=== PATIENT | female | born 1985 | race Caucasian/White ===

== ENCOUNTER 2017-07-20 19:09 | Emergency (ER) | payer MEDICAID ==
[2017-07-20] MEDS ORDERED: diphenhydrAMINE 50 MG/ML SDV IVPUSH ONE (19:37)
[2017-07-20] MEDS ORDERED: Prochlorperazine 10 MG/2 ML SDV IVPUSH ONE (19:37)
[2017-07-20] MEDS ORDERED: Ketorolac 30 MG/ML SDV IVPUSH ONE (19:37)
[2017-07-20] MEDS ORDERED: Lactated Ringers 1,000 ML IV ONE (19:37)
--- NOTE | 2017-07-20 19:43 | EDM.PDOC ---
ED HPI GENERAL MEDICAL PROBLEM - General Chief Complaint: Headache Stated Complaint: headache Time Seen by Provider: 07/20/17 19:35 Source of Information: Reports: Patient, Old Records History Limitations: Reports: No Limitations - History of Present Illness INITIAL COMMENTS - FREE TEXT/NARRATIVE: 32 yo female wtih frequent migraines presents with another since last night. Normally uses Imitrex, but used up her monthly supply. Saw Dr. Sharif last week for her SANTIAGO's, but not this week. Was referred to neurology, but her appt is not for a month. Today's SANTIAGO is exactly like past SANTIAGO's except today's includes more nausea and vomiting. No fever. No neck pain. No recent injury. Is here from work. Onset: Gradual Onset Date: 07/19/17 Onset Time: 22:00 Duration: Hour(s):, Constant Location: Reports: Head Quality: Reports: Ache Severity: Moderate Improves with: Reports: None Worsens with: Reports: None Context: Reports: Other (Hx of migraines) Associated Symptoms: Reports: Headaches, Nausea/Vomiting. 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: Reports: Acetaminophen - Related Data Allergies Allergy/AdvReac Type Severity Reaction Status Date / Time No Known Allergies Allergy Verified 07/20/17 21:16 Home Meds: Home Meds NK [No Known Home Meds] 07/20/17 [History] Past Medical History - Past Health History Medical/Surgical History: Denies Medical/Surgical History Neurological History: Reports: Headaches, Chronic Other Neuro History: Migrains for the last 21 years - Past Surgical History Neurological Surgical History: Reports: None Social & Family History - Family History Family Medical History: Noncontributory - Tobacco Use Smoking Status *Q: Current Every Day Smoker Years of Tobacco use: 10 Packs/Tins Daily: 0.5 Used Tobacco, but Quit: No Second Hand Smoke Exposure: Yes - Alcohol Use Days Per Week of Alcohol Use: 0 - Recreational Drug Use Recreational Drug Use: No Drug Use in Last 12 Months: No ED ROS GENERAL - Review of Systems Review Of Systems: See Below Constitutional: Reports: No Symptoms HEENT: Reports: No Symptoms Respiratory: Reports: No Symptoms Cardiovascular: Reports: No Symptoms Endocrine: Reports: No Symptoms GI/Abdominal: Reports: Nausea, Vomiting : Reports: No Symptoms Musculoskeletal: Reports: No Symptoms Skin: Reports: No Symptoms Neurological: Reports: Headache Psychiatric: Reports: No Symptoms - Physical Exam Exam: See Below Exam Limited By: No Limitations General Appearance: Alert, WD/WN, No Apparent Distress Eye Exam: Bilateral Eye: Normal Inspection, PERRL Ears: Normal External Exam, Normal Canal, Hearing Grossly Normal, Normal TMs Nose: Normal Inspection, Normal Mucosa, No Blood Throat/Mouth: Normal Inspection, Normal Lips, Normal Oropharynx, Normal Voice, No Airway Compromise, Other (Bad teeth) Head Exam: Atraumatic, Normocephalic Neck: Normal Inspection, Supple, Non-Tender Respiratory/Chest: No Respiratory Distress, Lungs Clear, Normal Breath Sounds, No Accessory Muscle Use Cardiovascular: Regular Rate, Rhythm, No Edema Neuro Exam (Abbreviated): Alert, Oriented, CN II-XII Intact, Normal Cognition, No Motor/Sensory Deficits Back Exam: Normal Inspection. No: CVA Tenderness (R), CVA Tenderness (L) Extremities: Normal Inspection, Normal Range of Motion, Non-Tender, No Pedal Edema Psychiatric: Normal Affect, Normal Mood Skin Exam: Warm, Dry, Intact, Normal Color, No Rash Course - Vital Signs Text/Narrative:: SANTIAGO and nausea gone after meds in ER [facility]. - Orders/Labs/Meds Orders: Active Orders 24 hr Category Date Time Status Sodium Chloride 0.9% [Saline Flush] Med 07/20/17 20:42 Active 10 ml FLUSH ASDIRECTED PRN Saline Lock Insert [OM.PC] Routine Oth 07/20/17 20:42 Ordered Medication Orders Sodium Chloride (Saline Flush) 10 ml FLUSH ASDIRECTED PRN PRN Reason: Keep Vein Open Last Admin: 07/20/17 20:44 Dose: 10 ml Meds: Medications Generic Name Dose Route Start Last Admin Trade Name Freq PRN Reason Stop Dose Admin Sodium Chloride 10 ml 07/20/17 20:42 07/20/17 20:44 Saline Flush FLUSH 10 ml ASDIRECTED PRN Administration Keep Vein Open Discontinued Medications Generic Name Dose Route Start Last Admin Trade Name Freq PRN Reason Stop Dose Admin Diphenhydramine HCl 25 mg 07/20/17 19:37 07/20/17 20:35 Benadryl IVPUSH 07/20/17 19:38 25 mg ONETIME ONE Administration Lactated Ringer's 1,000 mls @ 1,000 mls/hr 07/20/17 19:37 07/20/17 20:39 Ringers, Lactated IV 07/20/17 20:36 1,000 mls/hr BOLUS ONE Administration Ketorolac Tromethamine 30 mg 07/20/17 19:37 07/20/17 20:39 Toradol IVPUSH 07/20/17 19:38 30 mg ONETIME ONE Administration Prochlorperazine Edisylate 10 mg 07/20/17 19:37 07/20/17 20:37 Compazine IVPUSH 07/20/17 19:38 10 mg ONETIME ONE Administration Departure - Departure Time of Disposition: 21:35 Disposition: Home, Self-Care 01 Condition: Good Clinical Impression: Migraine Qualifiers: Migraine type: without aura Status migrainosus presence: with status migrainosus Intractability: not intractable Qualified Code(s): G43.001 - Migraine without aura, not intractable, with status migrainosus - Discharge Information Instructions: Shingles, [id number] Referrals: Randall Sharif MD [Primary Care Provider] - Forms: ED Department Discharge, ED Return to Work/School Form Additional Instructions: Home to sleep. No driving tonight. Follow up with your provider jose. - My Orders Last 24 Hours: My Active Orders 07/20/17 20:42 Sodium Chloride 0.9% [Saline Flush] 10 ml FLUSH ASDIRECTED PRN Saline Lock Insert [OM.PC] Routine - Assessment/Plan Last 24 Hours: My Active Orders 07/20/17 20:42 Sodium Chloride 0.9% [Saline Flush] 10 ml FLUSH ASDIRECTED PRN Saline Lock Insert [OM.PC] Routine
[2017-07-20] MEDS ORDERED: Sodium Chloride 0.9% 10 ML Syringe FLUSH PRN (20:42)
[2017-07-20 22:26] VITALS: BP 120/89
== END 2017-07-20 21:40 | disposition home or self-care (01) ==
LOC: FB.ED 19:09
DX: G43.001 Migraine without aura, not intractable, with status migrainosus (principal); F17.210 Nicotine dependence, cigarettes, uncomplicated
CPT/HCPCS: 96361; 96374; 96375; 99282; J0780; J1200; J1885; J7050; J7120

== ENCOUNTER 2017-10-24 16:00 | Emergency (ER) | payer MEDICAID ==
[2017-10-24] MEDS ORDERED: SUMAtriptan 6 MG/0.5 ML SDV SUBCUT ONE (16:20)
[2017-10-24] MEDS ORDERED: Ondansetron 8 MG Tab.DIS PO ONE (16:20)
--- NOTE | 2017-10-24 17:41 | EDM.PDOC ---
ED HPI GENERAL MEDICAL PROBLEM - General Chief Complaint: Headache Stated Complaint: HEADACHE Time Seen by Provider: 10/24/17 16:53 Source of Information: Reports: Patient History Limitations: Reports: No Limitations - History of Present Illness INITIAL COMMENTS - FREE TEXT/NARRATIVE: 32 y.o.w.f not , came to the ed deu to H/A, photophobia and nausea. Pt stated, this is her classic migraine. No trauma. No other acute medical issues. BP 132/90 pulse 84. No F/C Onset: Today Onset Date: 10/24/17 Onset Time: 12:00 Duration: Getting Worse, Intermittent Location: Reports: Head Quality: Reports: Dull, Same as Previous Episode Severity: Moderate Improves with: Reports: Rest Worsens with: Reports: Movement Context: Reports: Other (classic migraine) Associated Symptoms: Reports: Nausea/Vomiting Headache Pain Score (Numeric/FACES): 8 - Related Data Allergies Allergy/AdvReac Type Severity Reaction Status Date / Time No Known Allergies Allergy Verified 10/24/17 16:51 Home Meds: Home Meds SUMAtriptan [Imitrex] 6 mg .XX ASDIRECTED 10/24/17 [History] Past Medical History - Past Health History Medical/Surgical History: Denies Medical/Surgical History [employer] 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 History: Neurological History: Reports: Headaches, Chronic Other Neuro History: Migrains for the last 21 years - Past Surgical History Female Surgical History: Reports: Other (See Below) Other Female Surgeries/Procedures: tubes tied Neurological Surgical History: Reports: None Social & Family History - Family History Family Medical History: Noncontributory - Tobacco Use Smoking Status *Q: Current Every Day Smoker Years of Tobacco use: 10 Packs/Tins Daily: 0.5 Used Tobacco, but Quit: No Second Hand Smoke Exposure: Yes - Caffeine Use Caffeine Use: Reports: Coffee, Soda - Alcohol Use Days Per Week of Alcohol Use: 0 - Recreational Drug Use Recreational Drug Use: No Drug Use in Last 12 Months: No ED ROS GENERAL - Review of Systems Review Of Systems: See Below Constitutional: Reports: No Symptoms HEENT: Reports: No Symptoms Respiratory: Reports: No Symptoms Cardiovascular: Reports: No Symptoms Endocrine: Reports: No Symptoms GI/Abdominal: Reports: No Symptoms : Reports: No Symptoms Musculoskeletal: Reports: No Symptoms Skin: Reports: No Symptoms Neurological: Reports: Headache Psychiatric: Reports: No Symptoms Hematologic/Lymphatic: Reports: No Symptoms Immunologic: Reports: No Symptoms - Physical Exam Exam: See Below Exam Limited By: No Limitations General Appearance: Alert, WD/WN, Mild Distress Eye Exam: Bilateral Eye: Normal Inspection Ears: Normal External Exam Nose: Normal Inspection Throat/Mouth: Normal Inspection Head Exam: Atraumatic, Normocephalic Neck: Normal Inspection, Supple, Non-Tender Respiratory/Chest: No Respiratory Distress, Lungs Clear, Normal Breath Sounds Cardiovascular: Normal Peripheral Pulses, Regular Rate, Rhythm, No Edema GI/Abdominal: Normal Bowel Sounds, Soft, Non-Tender (Female) Exam: Deferred Rectal (Female) Exam: Deferred Neuro Exam (Abbreviated): Alert, Oriented, CN II-XII Intact, Normal Cognition, Normal Gait Back Exam: Normal Inspection, Full Range of Motion Extremities: Normal Inspection, Normal Range of Motion, Non-Tender, No Pedal Edema Psychiatric: Normal Affect, Normal Mood Skin Exam: Warm, Dry, Intact, Normal Color Course - Vital Signs Text/Narrative:: 32 y.o.w.f not , came to the ed deu to H/A, photophobia and nausea. Pt stated, this is her classic migraine. No trauma. No other acute medical issues. BP 132/90 pulse 84. No F/C PE: Migraine H/A Impression: Classic Migraine H/A Tx: Zofran. Imitrex Reexam: 100% improved Plan: D/C with instructions Last Recorded V/S: Last Vital Signs Temp 36.6 C 10/24/17 17:48 Pulse 81 10/24/17 17:48 Resp 18 10/24/17 17:48 BP 135/93 H 10/24/17 17:48 Pulse Ox 100 10/24/17 17:48 - Orders/Labs/Meds Meds: Medications Discontinued Medications Generic Name Dose Route Start Last Admin Trade Name Odell PRN Reason Stop Dose Admin Ondansetron HCl 8 mg 10/24/17 16:20 10/24/17 16:48 Zofran Odt PO 10/24/17 16:21 8 mg ONETIME ONE Administration Sumatriptan Succinate 6 mg 10/24/17 16:20 10/24/17 16:48 Imitrex SUBCUT 10/24/17 16:21 6 mg ONETIME ONE Administration Departure - Departure Time of Disposition: 17:39 Disposition: Home, Self-Care 01 Condition: Good Clinical Impression: Migraine Qualifiers: Migraine type: without aura Status migrainosus presence: with status migrainosus Intractability: not intractable Qualified Code(s): G43.001 - Migraine without aura, not intractable, with status migrainosus - Discharge Information Instructions: Migraine Headache, [id number] Referrals: Randall Sharif MD [Primary Care Provider] - Forms: ED Department Discharge Additional Instructions: Please f/u, please cont your current meds, please come back if your symptoms get worse acutely
[2017-10-24 18:12] VITALS: BP 135/93
== END 2017-10-24 17:48 | disposition home or self-care (01) ==
LOC: FB.ED 16:00
DX: G43.001 Migraine without aura, not intractable, with status migrainosus (principal); F17.210 Nicotine dependence, cigarettes, uncomplicated
CPT/HCPCS: 96372; 99283; A9270; J3030

== ENCOUNTER 2017-12-23 20:29 | Emergency (ER) | payer SELFPAY ==
[2017-12-23] MEDS: diphenhydrAMINE 50 MG/ML SDV IM ONE (21:24)
[2017-12-23] MEDS: Ketorolac 60 MG/2 ML SDV IM ONE (21:27)
[2017-12-23] MEDS: Metoclopramide 10 MG/2 ML SDV IM ONE (21:31)
[2017-12-23 21:55] VITALS: BP 134/77
--- NOTE | 2017-12-24 04:06 | ER ---
DATE SEEN: 12/23/2017 CHIEF COMPLAINT: Migraine headache. HISTORY OF PRESENT ILLNESS: This is a 32-year-old female with a migraine headache, started at about 3:00, insidious onset, associated with nausea, vomiting, and light sensitivity, characteristics of a usual migraine. She took Maxalt with no improvement. REVIEW OF SYSTEMS: No fever or chills. No neck stiffness or sore throat. PHYSICAL EXAMINATION: VITAL SIGNS: Afebrile, normal vital signs. GENERAL: She is not in distress. ENT: Negative. NECK: Supple. EYES: Normal. IMPRESSIONS: Migraine headache exacerbation. PLAN: Ketorolac, Benadryl, and Reglan IM. I advised to return to the ED with any worsening of symptoms. Discharged home. TIME SEEN: 2115 hours. /[id number] PRAFUL/DARLIN
== END 2017-12-23 21:55 | disposition home or self-care (01) ==
LOC: FB.ED 20:29
DX: G43.909 Migraine, unspecified, not intractable, without status migrainosus (principal)
CPT/HCPCS: 96372; 99283; J1200; J1885; J2765

== ENCOUNTER 2018-02-25 18:32 | Emergency (ER) | payer SELFPAY ==
[2018-02-25] MEDS ORDERED: SUMAtriptan 6 MG/0.5 ML SDV SUBCUT ONE (19:35)
[2018-02-25] MEDS ORDERED: Ondansetron 8 MG Tab.DIS PO ONE (19:35)
--- NOTE | 2018-02-25 19:40 | EDM.PDOC ---
ED HPI GENERAL MEDICAL PROBLEM - General Chief Complaint: Headache Stated Complaint: MIGRAINE Time Seen by Provider: 02/25/18 18:59 Source of Information: Reports: Patient History Limitations: Reports: No Limitations - History of Present Illness INITIAL COMMENTS - FREE TEXT/NARRATIVE: 32 y.o.w.f came to the ed due to her classic migraine Headache with photophobia. No trauma. Pt had severe nausea as well. Pt too at home imitrex, which did not elp her headache. Pt denies . No other acute medical issues. BP 125/70 pulse 78 RR 18 Pulse 101 Pulse ox 99% Temp 36.7 Onset Date: 02/25/18 Onset Time: 08:00 Duration: Hour(s): Location: Reports: Head Quality: Reports: Ache, Burning, Dull, Same as Previous Episode Severity: Moderate Improves with: Reports: Medication Worsens with: Reports: Other (stress) Context: Reports: Other (H/O migraine) Associated Symptoms: Reports: Nausea/Vomiting L temporal headache Pain Score (Numeric/FACES): 10 - Related Data Allergies Allergy/AdvReac Type Severity Reaction Status Date / Time No Known Allergies Allergy Verified 02/25/18 19:04 Home Meds: Home Meds Ondansetron [Zofran ODT] 8 mg PO Q6H PRN #16 tab.dis 02/25/18 [Rx] Past Medical History - Past Health History Medical/Surgical History: Denies Medical/Surgical History Gastrointestinal History: Reports: None Genitourinary History: 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: Neurological History: Reports: Headaches, Chronic, Migraines Other Neuro History: Migrains for the last 21 years - Past Surgical History GI Surgical History: Reports: None Female Surgical History: Reports: Tubal Ligation, Other (See Below) Other Female Surgeries/Procedures: tubes tied Neurological Surgical History: Reports: None Social & Family History - Family History Family Medical History: Noncontributory - Tobacco Use Smoking Status *Q: Current Every Day Smoker Years of Tobacco use: 10 Packs/Tins Daily: 1 Used Tobacco, but Quit: No Second Hand Smoke Exposure: Yes - Caffeine Use Caffeine Use: Reports: Soda - Alcohol Use Days Per Week of Alcohol Use: 0 - Recreational Drug Use Recreational Drug Use: No Drug Use in Last 12 Months: No ED ROS GENERAL - Review of Systems Review Of Systems: See Below Constitutional: Reports: No Symptoms HEENT: Reports: No Symptoms Respiratory: Reports: No Symptoms Cardiovascular: Reports: No Symptoms Endocrine: Reports: No Symptoms GI/Abdominal: Reports: No Symptoms : Reports: No Symptoms Musculoskeletal: Reports: No Symptoms Skin: Reports: No Symptoms Neurological: Reports: Headache Psychiatric: Reports: No Symptoms Hematologic/Lymphatic: Reports: No Symptoms Immunologic: Reports: No Symptoms - Physical Exam Exam: See Below Exam Limited By: No Limitations General Appearance: Alert, WD/WN, Mild Distress Eye Exam: Bilateral Eye: Normal Inspection Ears: Normal External Exam Nose: Normal Inspection Throat/Mouth: Normal Inspection Head Exam: Atraumatic, Normocephalic Neck: Normal Inspection, Supple, Non-Tender Respiratory/Chest: No Respiratory Distress, Lungs Clear, Normal Breath Sounds, No Accessory Muscle Use, Chest Non-Tender Cardiovascular: Normal Peripheral Pulses, Regular Rate, Rhythm, No Edema, No Gallop, No JVD GI/Abdominal: Normal Bowel Sounds, Soft, Non-Tender, No Organomegaly, No Abnormal Bruit (Female) Exam: Deferred Rectal (Female) Exam: Deferred Neuro Exam (Abbreviated): Alert, Oriented, CN II-XII Intact, Normal Cognition, Normal Gait, No Motor/Sensory Deficits, Other (photophobia) Back Exam: Normal Inspection, Full Range of Motion Extremities: Normal Inspection, Normal Range of Motion, Non-Tender, No Pedal Edema Psychiatric: Normal Affect, Normal Mood Skin Exam: Warm, Dry, Intact, Normal Color, No Rash Course - Vital Signs Text/Narrative:: 32 y.o.w.f came to the ed due to her classic migraine Headache with photophobia. No trauma. Pt had severe nausea as well. Pt too at home imitrex, which did not elp her headache. Pt denies . No other acute medical issues. BP 125/70 pulse 78 RR 18 Pulse 101 Pulse ox 99% Temp 36.7 PE: WNWD W F with photophobia and migraine H/A, Nausea. Impression: Migraine H/A Tx: Imitrex, Zofran Reexam: 99% improved Plan: D/C with instructions Last Recorded V/S: Last Vital Signs Temp 36.7 C 02/25/18 18:59 Pulse 101 H 02/25/18 18:59 Resp 18 02/25/18 20:17 BP 128/92 H 02/25/18 20:17 Pulse Ox 99 02/25/18 20:17 - Orders/Labs/Meds Meds: Medications Discontinued Medications Generic Name Dose Route Start Last Admin Trade Name Tobiq PRN Reason Stop Dose Admin Ondansetron HCl 8 mg 02/25/18 19:35 02/25/18 19:45 Zofran Odt PO 02/25/18 19:36 8 mg ONETIME ONE Administration Sumatriptan Succinate 6 mg 02/25/18 19:35 02/25/18 19:43 Imitrex SUBCUT 02/25/18 19:36 6 mg ONETIME ONE Administration Departure - Departure Time of Disposition: 20:19 Disposition: Home, Self-Care 01 Condition: Good Clinical Impression: Migraine aura, persistent Qualifiers: Status migrainosus presence: without status migrainosus Intractability: not intractable Qualified Code(s): G43.509 - Persistent migraine aura without cerebral infarction, not intractable, without status migrainosus - Discharge Information Prescriptions: Ondansetron [Zofran ODT] 8 mg PO Q6H PRN #16 tab.dis PRN Reason: Nausea Instructions: Migraine Headache, [id number] Referrals: Randall Sharif MD [Primary Care Provider] - Forms: ED Department Discharge Additional Instructions: Please continue your current meds, Zofran for nausea as needed, please follow up as needed, come back if your symptoms get worse acutely
[2018-02-25 20:22] VITALS: BP 128/92
== END 2018-02-25 20:26 | disposition home or self-care (01) ==
LOC: FB.ED 18:32
DX: G43.509 Persistent migraine aura without cerebral infarction, not intractable, without status migrainosus (principal); F17.210 Nicotine dependence, cigarettes, uncomplicated
CPT/HCPCS: 96372; 99283; A9270; J3030

== ENCOUNTER 2018-04-23 03:34 | Emergency (ER) | payer SELFPAY ==
[2018-04-23] MEDS ORDERED: Ondansetron 8 MG Tab.DIS PO ONE (03:51)
[2018-04-23] MEDS ORDERED: SUMAtriptan 6 MG/0.5 ML SDV SUBCUT ONE (03:51)
[2018-04-23 03:56] VITALS: BP 132/99
--- NOTE | 2018-04-23 03:57 | EDM.PDOC ---
ED HPI GENERAL MEDICAL PROBLEM - General Stated Complaint: MIGRAINE Time Seen by Provider: 04/23/18 03:34 Source of Information: Reports: Patient History Limitations: Reports: No Limitations - History of Present Illness INITIAL COMMENTS - FREE TEXT/NARRATIVE: 33 y.o.w.f witha h/o migraine H/Ocame to the ed due to pain behind both eyes and nausea, no vomiting, no trauma. It is not the worst headache ever, but one of the worst headaches. No F/C or any other acute medical issues. BP 132/99 Temp 36.6 O2 sat 97% on RA pulse 88 Onset Date: 04/23/18 Onset Time: 00:05 Duration: Hour(s): Location: Reports: Head Quality: Reports: Ache, Burning, Same as Previous Episode Severity: Moderate Improves with: Reports: Medication Worsens with: Reports: Other (bright light) Context: Reports: Other (H/O Migraine H/A) Associated Symptoms: Reports: Nausea/Vomiting migraine Pain Score (Numeric/FACES): 8 - Related Data Allergies Allergy/AdvReac Type Severity Reaction Status Date / Time No Known Allergies Allergy Verified 04/23/18 03:53 Home Meds: Home Meds NK [No Known Home Meds] 04/23/18 [History] Past Medical History - Past Health History Medical/Surgical History: Denies Medical/Surgical History Gastrointestinal History: Reports: None Genitourinary History: Reports: None [employer]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: Neurological History: Reports: Headaches, Chronic, Migraines Other Neuro History: Migrains for the last 21 years - Past Surgical History GI Surgical History: Reports: None Female Surgical History: Reports: Tubal Ligation, Other (See Below) Other Female Surgeries/Procedures: tubes tied Neurological Surgical History: Reports: None Social & Family History - Family History Family Medical History: Noncontributory - Caffeine Use Caffeine Use: Reports: Soda ED ROS GENERAL - Review of Systems Review Of Systems: See Below Constitutional: Reports: No Symptoms HEENT: Reports: No Symptoms Respiratory: Reports: No Symptoms Cardiovascular: Reports: No Symptoms Endocrine: Reports: No Symptoms GI/Abdominal: Reports: Nausea : Reports: No Symptoms Musculoskeletal: Reports: No Symptoms Skin: Reports: No Symptoms Neurological: Reports: No Symptoms Psychiatric: Reports: No Symptoms Hematologic/Lymphatic: Reports: No Symptoms Immunologic: Reports: No Symptoms - Physical Exam Exam: See Below Exam Limited By: No Limitations General Appearance: Alert, WD/WN, Mild Distress Eye Exam: Bilateral Eye: Normal Inspection Ears: Normal External Exam, Normal Canal, Hearing Grossly Normal Nose: Normal Inspection, Normal Mucosa Throat/Mouth: Normal Inspection, Normal Lips, Normal Teeth, Normal Gums, Normal Oropharynx, Normal Voice, No Airway Compromise Head Exam: Atraumatic, Normocephalic Neck: Normal Inspection, Supple, Non-Tender, Full Range of Motion Respiratory/Chest: No Respiratory Distress, Lungs Clear, Normal Breath Sounds, No Accessory Muscle Use, Chest Non-Tender Cardiovascular: Normal Peripheral Pulses, Regular Rate, Rhythm, No Edema, No Gallop, No JVD, No Murmur, No Rub GI/Abdominal: Normal Bowel Sounds, Soft, Non-Tender, No Organomegaly, No Distention, No Abnormal Bruit, No Mass, Pelvis Stable (Female) Exam: Deferred Rectal (Female) Exam: Deferred Neuro Exam (Abbreviated): Alert, Oriented, CN II-XII Intact, Normal Cognition, Normal Gait Back Exam: Normal Inspection, Full Range of Motion Extremities: Normal Inspection, Normal Range of Motion, Non-Tender, No Pedal Edema, Normal Capillary Refill Psychiatric: Normal Affect, Normal Mood Skin Exam: Warm, Dry, Intact, Normal Color Course - Vital Signs Text/Narrative:: 33 y.o.w.f witha h/o migraine H/Ocame to the ed due to pain behind both eyes and nausea, no vomiting, no trauma. It is not the worst headache ever, but one of the worst headaches. No F/C or any other acute medical issues. BP 132/99 Temp 36.6 O2 sat 97% on RA pulse 88 PE: 33 y.o.w.f cam e to the ed with a migraine H/A, classic Labs/Imaging were not indicated Impression: Migraine H/A with nausea Tx: Imitrex, Zofran Reexam: Improved, no nausea, pain got better Plan: D/C with instructions Last Recorded V/S: Last Vital Signs Temp 36.4 C 04/23/18 03:52 Pulse 88 04/23/18 03:52 Resp BP 132/99 H 04/23/18 03:52 Pulse Ox 97 04/23/18 03:52 - Orders/Labs/Meds Meds: Medications Discontinued Medications Generic Name Dose Route Start Last Admin Trade Name Odell PRN Reason Stop Dose Admin Ondansetron HCl 8 mg 04/23/18 03:51 04/23/18 03:57 Zofran Odt PO 04/23/18 03:52 8 mg ONETIME ONE Administration Sumatriptan Succinate 6 mg 04/23/18 03:51 04/23/18 03:57 Imitrex SUBCUT 04/23/18 03:52 6 mg ONETIME ONE Administration Departure - Departure Time of Disposition: 03:58 Disposition: Home, Self-Care 01 Condition: Good Clinical Impression: Migraine Qualifiers: Migraine type: without aura Status migrainosus presence: with status migrainosus Intractability: not intractable Qualified Code(s): G43.001 - Migraine without aura, not intractable, with status migrainosus - Discharge Information Referrals: Randall Sharif MD [Primary Care Provider] - Forms: ED Department Discharge Additional Instructions: Please f/u with your PMD, please come back if your symptoms get worse acutely
== END 2018-04-23 04:00 | disposition home or self-care (01) ==
LOC: FB.ED 03:34
DX: G43.001 Migraine without aura, not intractable, with status migrainosus (principal)
CPT/HCPCS: 96372; 99283; A9270-GY; J3030

== ENCOUNTER 2019-04-01 15:48 | Emergency (ER) | payer MEDICAID ==
[2019-04-01] MEDS ORDERED: Ondansetron 8 MG Tab.DIS PO ONE (16:07)
[2019-04-01] MEDS ORDERED: SUMAtriptan 6 MG/0.5 ML SDV SUBCUT ONE (16:07)
--- NOTE | 2019-04-01 16:33 | EDM.PDOC ---
ED HPI GENERAL MEDICAL PROBLEM - General Chief Complaint: Headache Stated Complaint: MIGRAINE Time Seen by Provider: 04/01/19 15:52 Source of Information: Reports: Patient, Family (daughter) History Limitations: Reports: No Limitations - History of Present Illness INITIAL COMMENTS - FREE TEXT/NARRATIVE: 33 y.o.w.f -smoker- came to the ed with her daughter due to nausea and bilateral Temporal headache and nausea. Bright light makes the headache worse. Pt has H/O migraine H/A. No trauma, not the worst headache ever. 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 No vomiting, no SOB, no CP or any other acute medical issues. BP 146/95 RR 17 Pulse ox 99% on RA Pulse 75 Temp 36.4 Onset Date: 04/01/19 Onset Time: 11:00 Duration: Hour(s):, Getting Worse, Intermittent Location: Reports: Head Quality: Reports: Dull, Same as Previous Episode Severity: Moderate Improves with: Reports: Medication Worsens with: Reports: Other (stress) Associated Symptoms: Reports: Other (nausea) Headache Pain Score (Numeric/FACES): 9 - Related Data Allergies Allergy/AdvReac Type Severity Reaction Status Date / Time No Known Allergies Allergy Verified 04/01/19 15:55 Home Meds: Home Meds Acetaminophen [Tylenol] 650 mg PO Q4H PRN 11/02/18 [History] diphenhydrAMINE HCl [Benadryl] 25 mg PO DAILY PRN 11/02/18 [History] Naproxen Sodium [Aleve] 440 mg PO ASDIRECTED PRN 04/01/19 [History] Ondansetron [Zofran Odt] 8 mg PO Q6H PRN #10 tab.rapdis 04/01/19 [Rx] Rizatriptan [Maxalt GARMENT LOOPER] 10 mg PO ASDIRECTED PRN 04/01/19 [History] Past Medical History - Past Health History Medical/Surgical History: Denies Medical/Surgical History Cardiovascular History: Reports: Other (See Below) Other Cardiovascular History: Varicose veins. Gastrointestinal History: Reports: None Genitourinary History: Reports: None DRAG DOWN History: Reports: Other DRAG DOWN History: Neurological History: Reports: Headaches, Chronic, Migraines Other Neuro History: Migrains for the last 21 years - Past Surgical History GI Surgical History: Reports: None Female Surgical History: Reports: Tubal Ligation, Other (See Below) Other Female Surgeries/Procedures: tubes tied Neurological Surgical History: Reports: None Social & Family History - Family History Family Medical History: Noncontributory - Caffeine Use Caffeine Use: Reports: Soda ED ROS GENERAL - Review of Systems Review Of Systems: See Below Constitutional: Reports: No Symptoms HEENT: Reports: No Symptoms Respiratory: Reports: No Symptoms Cardiovascular: Reports: No Symptoms Endocrine: Reports: No Symptoms GI/Abdominal: Reports: No Symptoms : Reports: No Symptoms Musculoskeletal: Reports: No Symptoms Skin: Reports: No Symptoms Neurological: Reports: No Symptoms Psychiatric: Reports: No Symptoms Hematologic/Lymphatic: Reports: No Symptoms Immunologic: Reports: No Symptoms - Physical Exam Exam: See Below Exam Limited By: No Limitations General Appearance: Alert, WD/WN, Mild Distress Eye Exam: Bilateral Eye: Normal Inspection Ears: Normal External Exam Nose: Normal Inspection Throat/Mouth: Normal Lips, Normal Voice, No Airway Compromise, Other (poor dentition) Head Exam: Atraumatic, Normocephalic Neck: Normal Inspection, Supple, Non-Tender, Full Range of Motion Respiratory/Chest: No Respiratory Distress, Lungs Clear, Normal Breath Sounds, Chest Non-Tender Cardiovascular: Normal Peripheral Pulses, Regular Rate, Rhythm, No Edema, No Gallop GI/Abdominal: Normal Bowel Sounds, Soft, Non-Tender, No Organomegaly (Female) Exam: Deferred Rectal (Female) Exam: Deferred Neuro Exam (Abbreviated): Alert, Oriented, CN II-XII Intact, Normal Cognition, Normal Gait Back Exam: Normal Inspection Extremities: Normal Inspection, Normal Range of Motion Psychiatric: Normal Affect, Normal Mood Skin Exam: Warm, Dry, Intact, Normal Color, No Rash Course - Vital Signs Text/Narrative:: 33 y.o.w.f -smoker- came to the ed with her daughter due to nausea and bilateral Temporal headache and nausea. Bright light makes the headache worse. Pt has H/O migraine H/A. No trauma, not the worst headache ever. 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 No vomiting, no SOB, no CP or any other acute medical issues. BP 146/95 RR 17 Pulse ox 99% on RA Pulse 75 Temp 36.4 PE: WNWD w F with Michael temporal H/A, poor dentition, nausea and photophobia Images/labs not indicated. Impression: Migraine H/A, photophobia, poor dentition, nausea and photophobia Tx: Imitrex, Zofran Reexam: pain and nausea subsided 100% Plan: D/C with instructions Last Recorded V/S: Last Vital Signs Temp 36.4 C 04/01/19 15:52 Pulse 63 04/01/19 16:30 Resp 18 04/01/19 16:30 BP 156/109 H 04/01/19 16:30 Pulse Ox 98 04/01/19 16:30 - Orders/Labs/Meds Meds: Medications Discontinued Medications Generic Name Dose Route Start Last Admin Trade Name Freq PRN Reason Stop Dose Admin Ondansetron HCl 8 mg 04/01/19 16:07 04/01/19 16:15 Zofran Odt PO 04/01/19 16:08 8 mg ONETIME ONE Administration Sumatriptan Succinate 6 mg 04/01/19 16:07 04/01/19 16:16 Imitrex SUBCUT 04/01/19 16:08 6 mg ONETIME ONE Administration Departure - Departure Time of Disposition: 16:33 Disposition: Home, Self-Care 01 Condition: Good Clinical Impression: Migraine Qualifiers: Migraine type: without aura Status migrainosus presence: with status migrainosus Intractability: not intractable Qualified Code(s): G43.001 - Migraine without aura, not intractable, with status migrainosus - Discharge Information Prescriptions: Ondansetron [Zofran Odt] 8 mg PO Q6H PRN #10 tab.rapdis PRN Reason: nausea, vomiting Instructions: Sumatriptan injection, Migraine Headache, [id number], Ondansetron oral dissolving tablet Referrals: Randall Sharif MD [Primary Care Provider] - Forms: ED Department Discharge Additional Instructions: Please continue current medicationss, Zofran for nausea, please follow up with your regular MD as needed, come back if your symptoms get worse acutely
[2019-04-01 16:40] VITALS: BP 156/109
== END 2019-04-01 16:16 | disposition home or self-care (01) ==
LOC: FB.ED 15:48
DX: G43.001 Migraine without aura, not intractable, with status migrainosus (principal); F17.200 Nicotine dependence, unspecified, uncomplicated; Z79.899 Other long term (current) drug therapy
CPT/HCPCS: 96372; 99283; A9270; J3030

== ENCOUNTER 2019-04-25 06:55 | Emergency (ER) | payer MEDICAID ==
[2019-04-25] MEDS ORDERED: SUMAtriptan 6 MG/0.5 ML SDV SUBCUT ONE (07:26)
[2019-04-25] MEDS ORDERED: Ondansetron 4 MG Tab.DIS PO ONE (07:26)
--- NOTE | 2019-04-25 07:30 | EDM.PDOC ---
ED HPI GENERAL MEDICAL PROBLEM - General Chief Complaint: Headache Stated Complaint: MIGRAINE Time Seen by Provider: 04/25/19 07:26 Source of Information: Reports: Patient History Limitations: Reports: No Limitations - History of Present Illness INITIAL COMMENTS - FREE TEXT/NARRATIVE: Presents with typical right sided migraine headache since 89, associated with N/V. Has Maxalt prescription waiting at the pharmacy. Onset: Today Onset Time: 01:00 Location: Reports: Head Quality: Reports: Ache Severity: Moderate Associated Symptoms: Reports: Nausea/Vomiting Headache Pain Score (Numeric/FACES): 8 - Related Data Allergies Allergy/AdvReac Type Severity Reaction Status Date / Time No Known Allergies Allergy Verified 04/25/19 07:07 Home Meds: Home Meds diphenhydrAMINE HCl [Benadryl] 25 mg PO DAILY PRN 11/02/18 [History] Naproxen Sodium [Aleve] 440 mg PO ASDIRECTED PRN 04/01/19 [History] Ondansetron [Zofran Odt] 8 mg PO Q6H PRN #10 tab.rapdis 04/01/19 [Rx] Rizatriptan [Maxalt DIGITAL COMMUNICATIONS MANAGER] 10 mg PO ASDIRECTED PRN 04/01/19 [History] Past Medical History Cardiovascular History: Reports: Other (See Below) Other Cardiovascular History: Varicose veins. 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: Neurological History: Reports: Headaches, Chronic, Migraines Other Neuro History: Migrains for the last 21 years - Past Surgical History GI Surgical History: Reports: None Female Surgical History: Reports: Tubal Ligation, Other (See Below) Other Female Surgeries/Procedures: tubes tied Neurological Surgical History: Reports: None Social & Family History - Family History Family Medical History: Noncontributory - Tobacco Use Smoking Status *Q: Current Every Day Smoker Years of Tobacco use: 15 Packs/Tins Daily: 0.3 - Caffeine Use Caffeine Use: Reports: Soda - Recreational Drug Use Recreational Drug Use: No ED ROS GENERAL - Review of Systems Review Of Systems: ROS reveals no pertinent complaints other than HPI. - Physical Exam Exam: Not Obtained Exam Limited By: No Limitations General Appearance: Alert, WD/WN, No Apparent Distress Eye Exam: Bilateral Eye: EOMI, PERRL Ears: Normal External Exam Nose: Normal Inspection Throat/Mouth: No Airway Compromise Head Exam: Atraumatic, Normocephalic Neck: Supple Respiratory/Chest: No Respiratory Distress Neuro Exam (Abbreviated): Alert, Normal Cognition, No Motor/Sensory Deficits Psychiatric: Normal Affect, Normal Mood Skin Exam: Warm, Dry Course - Vital Signs Last Recorded V/S: Last Vital Signs Temp 36.4 C 04/25/19 07:03 Pulse 77 04/25/19 07:03 Resp 18 04/25/19 07:03 BP 140/101 H 04/25/19 07:03 Pulse Ox 97 04/25/19 07:03 - Orders/Labs/Meds Meds: Medications Discontinued Medications Generic Name Dose Route Start Last Admin Trade Name Odell PRN Reason Stop Dose Admin Ondansetron HCl 4 mg 04/25/19 07:26 04/25/19 07:39 Zofran Odt PO 04/25/19 07:27 4 mg ONETIME ONE Administration Sumatriptan Succinate 6 mg 04/25/19 07:26 04/25/19 07:38 Imitrex SUBCUT 04/25/19 07:27 6 mg ONETIME ONE Administration - Re-Assessments/Exams Free Text/Narrative Re-Assessment/Exam: 04/25/19 08:15 Symptoms resolved after Imitrex and Zofran. Departure - Departure Time of Disposition: 08:15 Disposition: Home, Self-Care 01 Condition: Good Clinical Impression: Migraine - Discharge Information *PRESCRIPTION DRUG MONITORING PROGRAM REVIEWED*: No *COPY OF PRESCRIPTION DRUG MONITORING REPORT IN PATIENT MAURO: Not Applicable Instructions: Migraine Headache, [id number] Referrals: Randall Sharif MD [Primary Care Provider] - Forms: ED Department Discharge Additional Instructions: Rest, fluids. Fill your Maxalt prescription and take as directed.
[2019-04-25 08:50] VITALS: BP 133/95
== END 2019-04-25 08:25 | disposition home or self-care (01) ==
LOC: FB.ED 06:55
DX: G43.909 Migraine, unspecified, not intractable, without status migrainosus (principal); F17.210 Nicotine dependence, cigarettes, uncomplicated; Z79.899 Other long term (current) drug therapy
CPT/HCPCS: 96372; 99283; A9270; J3030

== ENCOUNTER 2019-08-27 05:56 | Emergency (ER) | payer MEDICAID ==
[2019-08-27] MEDS ORDERED: Ketorolac 60 MG/2 ML SDV IM ONE (06:30)
[2019-08-27] MEDS ORDERED: hydrOXYzine HCl 50 MG/ML SDV IM ONE (06:30)
--- NOTE | 2019-08-27 06:35 | EDM.PDOC ---
ED HPI GENERAL MEDICAL PROBLEM - General Chief Complaint: Headache Stated Complaint: MIGRAINE Time Seen by Provider: 08/27/19 06:31 Source of Information: Reports: Patient History Limitations: Reports: No Limitations - History of Present Illness INITIAL COMMENTS - FREE TEXT/NARRATIVE: Chaz is a 34 yo female with a headache.Classic Migraine.Started insidiously last night. Moderate. Tried Tylenol ,no relief. - Related Data Allergies Allergy/AdvReac Type Severity Reaction Status Date / Time No Known Allergies Allergy Verified 08/27/19 06:10 Home Meds: Home Meds Naproxen Sodium [Aleve] 440 mg PO ASDIRECTED PRN 04/01/19 [History] Ondansetron [Zofran Odt] 8 mg PO Q6H PRN #10 tab.rapdis 04/01/19 [Rx] Rizatriptan [Maxalt DIRECTOR OF SOLUTIONS ARCHITECTURE] 10 mg PO ASDIRECTED PRN 04/01/19 [History] Past Medical History Cardiovascular History: Reports: Other (See Below) Other Cardiovascular History: Varicose veins. 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 Neurological History: Reports: Migraines Other Neuro History: Migrains for the last 21 years - Past Surgical History Female Surgical History: Reports: Tubal Ligation Social & Family History - Family History Family Medical History: Noncontributory - Tobacco Use Smoking Status *Q: Current Every Day Smoker Years of Tobacco use: 13 Packs/Tins Daily: 0.5 - Caffeine Use Caffeine Use: Reports: Soda ED ROS GENERAL - Review of Systems Review Of Systems: ROS reveals no pertinent complaints other than HPI. - Physical Exam Exam: See Below Exam Limited By: No Limitations General Appearance: Alert, WD/WN Ears: Normal External Exam Nose: Normal Inspection Throat/Mouth: Normal Inspection Head Exam: Atraumatic, Normocephalic Neck: Normal Inspection Course - Orders/Labs/Meds Orders: Active Orders 24 hr Category Date Time Status Ketorolac [Toradol] Med 08/27/19 06:30 Once 60 mg IM ONETIME ONE hydrOXYzine HCl [Vistaril] Med 08/27/19 06:30 Once 50 mg IM ONETIME ONE Medication Orders Hydroxyzine HCl (Vistaril) 50 mg IM ONETIME ONE Stop: 08/27/19 06:31 Ketorolac Tromethamine (Toradol) 60 mg IM ONETIME ONE Stop: 08/27/19 06:31 Meds: Medications Generic Name Dose Route Start Last Admin Trade Name Odell PRN Reason Stop Dose Admin Hydroxyzine HCl 50 mg 08/27/19 06:30 Vistaril IM 08/27/19 06:31 ONETIME ONE Ketorolac Tromethamine 60 mg 08/27/19 06:30 Toradol IM 08/27/19 06:31 ONETIME ONE Departure - Departure Time of Disposition: 06:34 Disposition: Home, Self-Care 01 Condition: Good Clinical Impression: Migraine - Discharge Information Referrals: Randall Sharif MD [Primary Care Provider] - - Problem List & Annotations (1) Migraine SNOMED Code(s): 93385605 Code(s): G43.909 - MIGRAINE, UNSP, NOT INTRACTABLE, WITHOUT STATUS MIGRAINOSUS Status: Acute Current Visit: Yes - Problem List Review Problem List Initiated/Reviewed/Updated: Yes - My Orders Last 24 Hours: My Active Orders 08/27/19 06:30 Ketorolac [Toradol] 60 mg IM ONETIME ONE hydrOXYzine HCl [Vistaril] 50 mg IM ONETIME ONE - Assessment/Plan Last 24 Hours: My Active Orders 08/27/19 06:30 Ketorolac [Toradol] 60 mg IM ONETIME ONE hydrOXYzine HCl [Vistaril] 50 mg IM ONETIME ONE Plan: Toradol and Vistaril IM given. See PCP prn
[2019-08-27 06:59] VITALS: BP 120/90; PULSE 78
== END 2019-08-27 06:50 | disposition home or self-care (01) ==
LOC: FB.ED 05:56
DX: G43.909 Migraine, unspecified, not intractable, without status migrainosus (principal); F17.200 Nicotine dependence, unspecified, uncomplicated
CPT/HCPCS: 96374; 96375; 99283; J1885; J3410

== ENCOUNTER 2019-09-16 14:32 | Emergency (ER) | payer SELFPAY ==
--- NOTE | 2019-09-16 14:51 | EDM.PDOC ---
ED HPI GENERAL MEDICAL PROBLEM - General Stated Complaint: MIGRAINE Time Seen by Provider: 09/16/19 14:50 Source of Information: Reports: Patient History Limitations: Reports: No Limitations - History of Present Illness INITIAL COMMENTS - FREE TEXT/NARRATIVE: 34-year-old female with onset of typical migraine headache yesterday morning. She awoke with the headache. She rates pain now as a 7/10. She has nausea now but has not had any vomiting since 11 PM last night. She has photophobia and phonophobia. She has had no neck stiffness. Pain is located in her left temporal area. It is a throbbing and pounding type headache. It is typical of her migraine. She has been taking CBD oil and Gummi's without relief of her symptoms. No fevers. She has been able to drink liquids well. She reports that she has been given Toradol and Vistaril in the past with relief of her symptoms. There are no other associated signs or symptoms. There are no other modifying factors. Onset: Other (Awoke yesterday morning with the headache) Duration: Constant Location: Reports: Head Quality: Reports: Ache, Throbbing Severity: Moderate Improves with: Reports: None Worsens with: Reports: None Context: Reports: Other (As above) Associated Symptoms: Reports: Headaches, Nausea/Vomiting, Other (As above) Treatments BOILER WASHER: Reports: Home Treatments (CBD oil and Gummi's) Headache Pain Score (Numeric/FACES): 7 - Related Data Allergies Allergy/AdvReac Type Severity Reaction Status Date / Time No Known Allergies Allergy Verified 09/16/19 14:51 Past Medical History Cardiovascular History: Reports: Other (See Below) Other Cardiovascular History: Varicose veins. 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.) ED ROS GENERAL - Review of Systems Review Of Systems: See Below Constitutional: Reports: No Symptoms HEENT: Reports: Other (Nasal congestion) Respiratory: Reports: No Symptoms Cardiovascular: Reports: No Symptoms GI/Abdominal: Reports: Nausea, Vomiting (1 episode of vomiting yesterday) : Reports: No Symptoms Musculoskeletal: Reports: No Symptoms Skin: Reports: No Symptoms Neurological: Reports: Headache Hematologic/Lymphatic: Reports: No Symptoms Immunologic: Reports: No Symptoms - Physical Exam Exam: See Below Exam Limited By: No Limitations General Appearance: Alert, WD/WN, Mild Distress Eye Exam: Bilateral Eye: EOMI, Normal Inspection Ears: Normal External Exam, Hearing Grossly Normal Nose: Normal Inspection, Normal Mucosa, No Blood Throat/Mouth: Normal Voice, No Airway Compromise Head Exam: Atraumatic, Normocephalic Neck: Normal Inspection, Supple, Non-Tender, Full Range of Motion Respiratory/Chest: No Respiratory Distress, Lungs Clear, Normal Breath Sounds, No Accessory Muscle Use, Chest Non-Tender Cardiovascular: Normal Peripheral Pulses, Regular Rate, Rhythm, No JVD GI/Abdominal: Normal Bowel Sounds, Soft, Non-Tender, No Mass Neuro Exam (Abbreviated): Alert, Oriented, CN II-XII Intact, Normal Cognition, No Motor/Sensory Deficits Back Exam: Normal Inspection Extremities: Normal Inspection, Normal Range of Motion, Non-Tender, No Pedal Edema, Normal Capillary Refill Psychiatric: Normal Affect Skin Exam: Warm, Dry, Intact, Normal Color, No Rash Course - Vital Signs Last Recorded V/S: Last Vital Signs Temp 36.6 C 09/16/19 14:32 Pulse 77 09/16/19 14:32 Resp 18 09/16/19 14:32 BP 132/98 H 09/16/19 14:32 Pulse Ox 98 09/16/19 14:32 - Orders/Labs/Meds Meds: Medications Discontinued Medications Generic Name Dose Route Start Last Admin Trade Name Freq PRN Reason Stop Dose Admin Hydroxyzine HCl 50 mg 09/16/19 14:55 Vistaril IM 09/16/19 14:56 ONETIME ONE Ketorolac Tromethamine 60 mg 09/16/19 14:55 Toradol IM 09/16/19 14:56 ONETIME ONE - Re-Assessments/Exams Free Text/Narrative Re-Assessment/Exam: 09/16/19 15:05: The patient's headache appears to be a typical migraine for her. There are no concerning signs or symptoms. I do not feel that any testing is indicated at this point. Patient will be given Toradol and Vistaril IM and will be discharged home. She has had results with this in the past for her migraine headaches. Departure - Departure Time of Disposition: 15:25 Disposition: Home, Self-Care 01 Condition: Good Clinical Impression: Migraine headache Qualifiers: Migraine type: unspecified Status migrainosus presence: without status migrainosus Intractability: not intractable Qualified Code(s): G43.909 - Migraine, unspecified, not intractable, without status migrainosus - Discharge Information Instructions: Migraine Headache, [id number] Referrals: Randall Sharif MD [Primary Care Provider] - Additional Instructions: You appear to have a typical migraine headache for you. You were given Toradol and Vistaril injections. You should increase your fluid intake. You should rest in a dark quiet room. Back to the emergency department for fever, unrelenting vomiting, worsening headache or any other concerning sign or symptom.
[2019-09-16] MEDS ORDERED: hydrOXYzine HCl 50 MG/ML SDV IM ONE (14:55)
[2019-09-16] MEDS ORDERED: Ketorolac 60 MG/2 ML SDV IM ONE (14:55)
[2019-09-16 14:57] VITALS: PULSE 77
[2019-09-16 17:40] VITALS: BP 123/92
== END 2019-09-16 15:50 | disposition home or self-care (01) ==
LOC: FB.ED 14:32
DX: G43.909 Migraine, unspecified, not intractable, without status migrainosus (principal); F17.210 Nicotine dependence, cigarettes, uncomplicated
CPT/HCPCS: 96372; 99283; J1885; J3410

== ENCOUNTER 2019-11-03 07:44 | Emergency (ER) | payer SELFPAY ==
[2019-11-03] MEDS ORDERED: Acetaminophen 500 MG Tab PO ONE (08:12)
[2019-11-03] MEDS ORDERED: Ibuprofen 800 MG Tab PO ONE (08:12)
[2019-11-03] MEDS ORDERED: Lidocaine 2% Viscous Solution 15 ML Cup PO ONE (08:12)
--- NOTE | 2019-11-03 08:22 | EDM.PDOC ---
ED HPI GENERAL MEDICAL PROBLEM - General Chief Complaint: ENT Problem Stated Complaint: TOOTH INFECTION Time Seen by Provider: 11/03/19 07:50 Source of Information: Reports: Patient History Limitations: Reports: No Limitations - History of Present Illness INITIAL COMMENTS - FREE TEXT/NARRATIVE: Patient presented to the ED because of dental pain. She rates the pain 8/10. She took OTC tylenol and ibuprofen without any relief. lower left side teeth Pain Score (Numeric/FACES): 7 - Related Data Allergies Allergy/AdvReac Type Severity Reaction Status Date / Time No Known Allergies Allergy Verified 11/03/19 07:57 Home Meds: Home Meds Amoxicillin 500 mg PO TID #30 tablet 11/03/19 [Rx] Past Medical History Cardiovascular History: Reports: Other (See Below) Other Cardiovascular History: Varicose veins. 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.) ED ROS ENT - Review of Systems Review Of Systems: See Below Constitutional: Reports: No Symptoms HEENT: Reports: Dental Pain Respiratory: Reports: No Symptoms Cardiovascular: Reports: No Symptoms Endocrine: Reports: No Symptoms GI/Abdominal: Reports: No Symptoms : Reports: No Symptoms Musculoskeletal: Reports: No Symptoms Skin: Reports: No Symptoms Neurological: Reports: No Symptoms Psychiatric: Reports: No Symptoms ED EXAM, ENT - Physical Exam Exam: See Below Exam Limited By: No Limitations General Appearance: Alert, WD/WN, No Apparent Distress Eye Exam: Bilateral Eye: PERRL Ears: Normal External Exam, Normal Canal, Hearing Grossly Normal Nose: Normal Inspection, Normal Mucousa, No Blood Mouth/Throat: Normal Inspection, Normal Gums, Normal Lips, Dental Pain, Other ( gingival swelling left upper molar,dental caries) Course - Vital Signs Text/Narrative:: ibuprofen 800 mg po x1 tylenol 1000 mg po x1 amoxicillin 500 mg po x1 Viscous lidocaine applied to left upper molar Last Recorded V/S: Last Vital Signs Temp 36.7 C 11/03/19 08:35 Pulse 83 11/03/19 08:35 Resp 17 11/03/19 08:35 BP 129/99 H 11/03/19 08:35 Pulse Ox 100 11/03/19 08:35 - Orders/Labs/Meds Meds: Medications Discontinued Medications Generic Name Dose Route Start Last Admin Trade Name Odell PRN Reason Stop Dose Admin Acetaminophen 1,000 mg 11/03/19 08:12 11/03/19 08:17 Tylenol Extra Strength PO 11/03/19 08:13 1,000 mg ONETIME ONE Administration Ibuprofen 800 mg 11/03/19 08:12 11/03/19 08:17 Motrin PO 11/03/19 08:13 800 mg ONETIME ONE Administration Lidocaine HCl 15 ml 11/03/19 08:12 11/03/19 08:17 Xylocaine 2% Viscous PO 11/03/19 08:13 15 ml ONETIME ONE Administration Departure - Departure Time of Disposition: 08:30 Disposition: Home, Self-Care 01 Condition: Good Clinical Impression: Tooth ache, Tooth infection, Poor dentition - Discharge Information Prescriptions: Amoxicillin 500 mg PO TID #30 tablet Instructions: Gingivitis, [id number] Referrals: Randall Sharif MD [Primary Care Provider] - Forms: ED Department Discharge Additional Instructions: please read discharge instructions on dental pain gurgle with salt and water apply lidocaine gel with severe pain that you can't tolerate take ibuprofen 800 mg with tylenol 1000 mg ever 8 hours as needed for pain Amoxicilin 500 mg 3 times daily for 10 days follow up with your dentist as soon as you can
[2019-11-03 09:59] VITALS: BP 129/99; PULSE 83
== END 2019-11-03 08:38 | disposition home or self-care (01) ==
LOC: FB.ED 07:44
DX: K04.7 Periapical abscess without sinus (principal); K02.9 Dental caries, unspecified; F17.210 Nicotine dependence, cigarettes, uncomplicated
CPT/HCPCS: 99282; A9270

== ENCOUNTER 2019-11-07 20:38 | Emergency (ER) | payer SELFPAY ==
[2019-11-07 20:49] VITALS: PULSE 72
[2019-11-07] MEDS ORDERED: Ketorolac 60 MG/2 ML SDV IM ONE (20:58)
--- NOTE | 2019-11-07 21:05 | EDM.PDOC ---
ED HPI GENERAL MEDICAL PROBLEM - General Chief Complaint: Headache Stated Complaint: MIGRAINE Time Seen by Provider: 11/07/19 20:50 Source of Information: Reports: Patient History Limitations: Reports: No Limitations - History of Present Illness INITIAL COMMENTS - FREE TEXT/NARRATIVE: has history of migraines , developed headache this am , right sided temporal area . states took aleve and then ibuprofen and this did not relieve the headache. light sensitive and throbbing same as prior headaches , no history of trauma. just had menses and seems migraine related to menses. 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.) ED ROS GENERAL - Review of Systems Review Of Systems: See Below Constitutional: Reports: No Symptoms HEENT: Reports: No Symptoms Respiratory: Reports: No Symptoms Cardiovascular: Reports: No Symptoms Endocrine: Reports: No Symptoms GI/Abdominal: Reports: No Symptoms Musculoskeletal: Reports: No Symptoms Skin: Reports: No Symptoms Neurological: Reports: Other (light sensitivity) - Physical Exam Exam: See Below Exam Limited By: No Limitations General Appearance: Alert, WD/WN, No Apparent Distress Eye Exam: Bilateral Eye: EOMI Ears: Normal External Exam Nose: Normal Inspection Head Exam: Atraumatic, Normocephalic Neck: Normal Inspection, Supple, Non-Tender, Full Range of Motion Respiratory/Chest: No Respiratory Distress Neuro Exam (Abbreviated): Alert, Oriented, CN II-XII Intact, Normal Cognition, Normal Gait, Normal Reflexes, No Motor/Sensory Deficits Extremities: Normal Inspection, Normal Range of Motion Skin Exam: Warm Course - Vital Signs Text/Narrative:: pt given IM toradol as requested , BP recheck done Last Recorded V/S: Last Vital Signs Temp 36.3 C 11/07/19 20:45 Pulse 72 11/07/19 20:45 Resp 17 11/07/19 20:45 BP 147/113 H 11/07/19 20:45 Pulse Ox 98 11/07/19 20:45 - Orders/Labs/Meds Orders: Active Orders 24 hr Category Date Time Status Ketorolac [Toradol] Med 11/07/19 20:58 Once 60 mg IM ONETIME ONE Departure - Departure Time of Disposition: 09:05 Disposition: Home, Self-Care 01 Condition: Good Clinical Impression: Migraine Qualifiers: Migraine type: unspecified Status migrainosus presence: without status migrainosus Intractability: not intractable Qualified Code(s): G43.909 - Migraine, unspecified, not intractable, without status migrainosus Headache, chronic migraine without aura Qualifiers: Status migrainosus presence: without status migrainosus Intractability: not intractable Qualified Code(s): G43.709 - Chronic migraine without aura, not intractable, without status migrainosus - Discharge Information *PRESCRIPTION DRUG MONITORING PROGRAM REVIEWED*: Not Applicable *COPY OF PRESCRIPTION DRUG MONITORING REPORT IN PATIENT MAURO: Not Applicable Instructions: Migraine Headache Referrals: Randall Sharif MD [Primary Care Provider] - Forms: ED Department Discharge Sepsis Event Note - Evaluation Sepsis Screening Result: No Definite Risk - Focused Exam Vital Signs: Vital Signs Temp Pulse Resp BP Pulse Ox 11/07/19 20:45 36.3 C 72 17 147/113 H 98 Date Exam was Performed: 11/07/19 Time Exam was Performed: 20:59 - My Orders Last 24 Hours: My Active Orders 11/07/19 20:58 Ketorolac [Toradol] 60 mg IM ONETIME ONE - Assessment/Plan Last 24 Hours: My Active Orders 11/07/19 20:58 Ketorolac [Toradol] 60 mg IM ONETIME ONE
[2019-11-07 21:37] VITALS: BP 141/106
== END 2019-11-07 21:38 | disposition home or self-care (01) ==
LOC: FB.ED 20:38
DX: G43.709 Chronic migraine without aura, not intractable, without status migrainosus (principal)
CPT/HCPCS: 96372; 99283; 99283-25; J1885

== ENCOUNTER 2020-10-21 20:17 | Emergency (ER) | payer MEDICAID ==
[2020-10-21] MEDS ORDERED: Ketorolac 60 MG/2 ML SDV IM ONE (20:29)
[2020-10-21] MEDS ORDERED: SUMAtriptan 6 MG/0.5 ML SDV SUBCUT ONE (20:29)
--- NOTE | 2020-10-21 21:01 | EDM.PDOC ---
ED HPI GENERAL MEDICAL PROBLEM - General Chief Complaint: Headache Stated Complaint: MIGRAINE Time Seen by Provider: 10/21/20 20:30 Source of Information: Reports: Patient History Limitations: Reports: No Limitations - History of Present Illness INITIAL COMMENTS - FREE TEXT/NARRATIVE: Patient presented to the ED because of headache over the bitemporal area which started 2 days ago. The pain is throbbing, 8/10, with associated photophobia. She take maxalt 10 mg but ran out of her prescription. Denies having any fever or neck stiffness. head Pain Score (Numeric/FACES): 8 - Related Data Allergies Allergy/AdvReac Type Severity Reaction Status Date / Time No Known Allergies Allergy Verified 10/21/20 20:30 Home Meds: Home Meds Amoxicillin 500 mg PO TID #30 tablet 11/03/19 [Rx] Past Medical History HEENT History: Reports: Other (See Below) Other HEENT History: poor dentition. Cardiovascular History: Reports: Other (See Below) Other Cardiovascular History: Varicose veins. Respiratory History: Reports: Other (See Below) Other Respiratory History: chronic smoker. 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 Surgery for tube removal Neurological History: Reports: Migraines Other Neuro History: Migraines for the last 21 years - Past Surgical History HEENT Surgical History: Reports: None Respiratory Surgical History: Reports: None GI Surgical History: Reports: None Female Surgical History: Reports: Tubal Ligation Other Female Surgeries/Procedures: tubes tied Neurological Surgical History: Reports: None Social & Family History - Family History Family Medical History: No Pertinent Family History - Tobacco Use Tobacco Use Status *Q: Current Every Day Tobacco User Years of Tobacco use: 15 Packs/Tins Daily: 1 Used Tobacco, but Quit: No - Caffeine Use Caffeine Use: Reports: Soda Caffeine Use Comment: herbalife tea - Recreational Drug Use Recreational Drug Use: No - Living Situation & Occupation 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.) ED ROS GENERAL - Review of Systems Review Of Systems: See Below Constitutional: Reports: No Symptoms HEENT: Reports: No Symptoms Respiratory: Reports: No Symptoms Cardiovascular: Reports: No Symptoms Endocrine: Reports: No Symptoms GI/Abdominal: Reports: No Symptoms : Reports: No Symptoms Musculoskeletal: Reports: No Symptoms Skin: Reports: No Symptoms Neurological: Reports: Headache Psychiatric: Reports: No Symptoms Hematologic/Lymphatic: Reports: No Symptoms Immunologic: Reports: No Symptoms ED EXAM, GENERAL - Physical Exam Exam: See Below Exam Limited By: No Limitations General Appearance: Alert, No Apparent Distress Eye Exam: Bilateral Eye: PERRL Ears: Normal External Exam, Normal Canal Nose: Normal Inspection, Normal Mucosa, No Blood Throat/Mouth: Normal Inspection, Normal Lips, Normal Teeth, Normal Gums Head: Atraumatic, Normocephalic Neck: Normal Inspection, Supple, Non-Tender, Full Range of Motion Respiratory/Chest: No Respiratory Distress, Lungs Clear, Normal Breath Sounds Cardiovascular: Normal Peripheral Pulses, Regular Rate, Rhythm, No Edema, No Gallop GI/Abdominal: Normal Bowel Sounds, Soft, Non-Tender, No Organomegaly Back Exam: Normal Inspection, Full Range of Motion Extremities: Normal Inspection, Normal Range of Motion Neurological: Alert, Oriented, CN II-XII Intact, Normal Cognition, Normal Gait Course - Vital Signs Text/Narrative:: Toradol 60 mg IM Imitrex 6 mg SC Last Recorded V/S: Last Vital Signs Temp 36.3 C 10/21/20 21:04 Pulse 68 10/21/20 21:04 Resp 16 10/21/20 21:04 BP 117/85 10/21/20 21:04 Pulse Ox 100 10/21/20 21:04 - Orders/Labs/Meds Meds: Medications Discontinued Medications Generic Name Dose Route Start Last Admin Trade Name Odell PRN Reason Stop Dose Admin Ketorolac Tromethamine 60 mg 10/21/20 20:29 10/21/20 20:37 Toradol IM 10/21/20 20:30 60 mg ONETIME ONE Administration Sumatriptan Succinate 6 mg 10/21/20 20:29 10/21/20 20:39 Imitrex SUBCUT 10/21/20 20:30 6 mg ONETIME ONE Administration Departure - Departure Time of Disposition: 21:00 Disposition: Home, Self-Care 01 Condition: Good Clinical Impression: Migraine - Discharge Information Instructions: Migraine Headache Referrals: Randall Sharif MD [Primary Care Provider] - Forms: ED Department Discharge Additional Instructions: Please read discharge instructions for migraine Take your topamax as directed Follow up as needed Sepsis Event Note (ED) - Evaluation Sepsis Screening Result: No Definite Risk
[2020-10-21 22:39] VITALS: BP 117/85; PULSE 68
== END 2020-10-21 21:05 | disposition home or self-care (01) ==
LOC: FB.ED 20:17
DX: G43.909 Migraine, unspecified, not intractable, without status migrainosus (principal); F17.210 Nicotine dependence, cigarettes, uncomplicated
CPT/HCPCS: 96372; 99283; J1885; J3030

== ENCOUNTER 2021-01-31 06:51 | Emergency (ER) | payer MEDICAID ==
[2021-01-31] MEDS ORDERED: Ketorolac 60 MG/2 ML SDV IM ONE (07:46)
--- NOTE | 2021-01-31 08:07 | EDM.PDOC ---
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 Cardiovascular History: Reports: Other (See Below) Other Cardiovascular History: Varicose veins. Respiratory History: Reports: Other (See Below) Other Respiratory History: chronic smoker. 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 Surgery for tube removal Neurological History: Reports: Migraines Other Neuro History: Migraines for the last 21 years - Past Surgical History HEENT Surgical History: Reports: None Respiratory Surgical History: Reports: None GI Surgical History: Reports: None Female Surgical History: Reports: Tubal Ligation Other Female Surgeries/Procedures: tubes tied Neurological Surgical History: Reports: None Social & Family History - Family History Family Medical History: No Pertinent Family History - Tobacco Use Tobacco Use Status *Q: Current Every Day Tobacco User Years of Tobacco use: 12 Packs/Tins Daily: 0.2 - Caffeine Use Caffeine Use: Reports: Soda Caffeine Use Comment: herbalife tea - Recreational Drug Use Recreational Drug Use: No - Living Situation & Occupation 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.) ED ROS ENT - Review of Systems Review Of Systems: See Below Constitutional: Reports: No Symptoms HEENT: Reports: Dental Pain Respiratory: Reports: No Symptoms Endocrine: Reports: No Symptoms GI/Abdominal: Reports: No Symptoms : Reports: No Symptoms Musculoskeletal: Reports: No Symptoms Skin: Reports: No Symptoms Neurological: Reports: No Symptoms Psychiatric: Reports: No Symptoms Hematologic/Lymphatic: Reports: No Symptoms Immunologic: Reports: No Symptoms ED EXAM, ENT - Physical Exam Exam: See Below Exam Limited By: No Limitations General Appearance: Alert, WD/WN, Mild Distress Ears: Hearing Grossly Normal Nose: Normal Inspection Mouth/Throat: Other (very poor dentition with multiple teeth eroded to gum line, tooth #7 is loose and the medial 2/3rd is missing, quite painful with movement, moderate swell of the skin over the R mandible, shoddy LNs, gingiva not red or swollen) Respiratory/Chest: No Respiratory Distress, Lungs Clear, Chest Non-Tender Cardiovascular: Regular Rate, Rhythm, No Edema, No Murmur GI/Abdominal: Soft Extremities: Normal Inspection Neurological: Alert, Oriented, CN II-XII Intact, Normal Cognition, No Motor/Sensory Deficits Psychiatric: Normal Affect, Normal Mood Skin: Warm, Dry, Intact, Normal Color, No Rash Lymphatic: No Adenopathy Course - Vital Signs Last Recorded V/S: Last Vital Signs Temp 36.8 C 01/31/21 07:10 Pulse 85 01/31/21 07:10 Resp 18 01/31/21 07:10 BP 139/45 L 01/31/21 07:10 Pulse Ox 98 01/31/21 07:10 - Orders/Labs/Meds Meds: Medications Discontinued Medications Generic Name Dose Route Start Last Admin Trade Name Tobiq PRN Reason Stop Dose Admin Ketorolac Tromethamine 60 mg 01/31/21 07:46 Toradol IM 01/31/21 07:47 ONETIME ONE Departure - Departure Time of Disposition: 07:59 Disposition: Home, Self-Care 01 Condition: Good Clinical Impression: Dental abscess - Discharge Information *PRESCRIPTION DRUG MONITORING PROGRAM REVIEWED*: Not Applicable *COPY OF PRESCRIPTION DRUG MONITORING REPORT IN PATIENT MAURO: Not Applicable Prescriptions: Amoxicillin 500 mg PO TID #21 tablet Lidocaine 2% [Xylocaine 2% Viscous] 30 ml PO ASDIRECTED #1 cup Instructions: Dental Abscess Referrals: Randall Sharif MD [Primary Care Provider] - Additional Instructions: For infection, take amoxicillin 500 mg 1 tab 3 tabs a day for 7 days. For pain, take ibuprofen 200 mg 4 tabs and acetaminophen 500 mg 2 tabs 3 tabs a day for 7 days. Use ice for 10 minutes every hour as needed. For pain, put a thin layer of 2% viscous lidocaine on a cotton ball and bite down every hour as needed for pain. See a dentist in one week. Sepsis Event Note (ED) - Evaluation Sepsis Screening Result: No Definite Risk - Focused Exam Vital Signs: Vital Signs Temp Pulse Resp BP Pulse Ox 01/31/21 07:10 36.8 C 85 18 139/45 L 98
[2021-01-31 08:49] VITALS: BP 128/84; PULSE 76
== END 2021-01-31 08:34 | disposition home or self-care (01) ==
LOC: FB.ED 06:51
DX: K04.7 Periapical abscess without sinus (principal); F17.200 Nicotine dependence, unspecified, uncomplicated
CPT/HCPCS: 96372; 99282; J1885

== ENCOUNTER 2021-03-20 22:10 | Emergency (ER) | payer OTHER, MEDICAID ==
[2021-03-20] MEDS ORDERED: Lidocaine 2% Viscous Solution 15 ML Cup PO STA (22:19)
[2021-03-20] MEDS ORDERED: Amoxicillin 500 MG Cap PO STA (22:23)
[2021-03-20 22:41] VITALS: BP 134/91; PULSE 90
--- NOTE | 2021-03-20 22:57 | EDM.PDOC ---
ED HPI GENERAL MEDICAL PROBLEM - General Chief Complaint: General Stated Complaint: GUM INFECTION Time Seen by Provider: 03/20/21 22:15 Source of Information: Reports: Patient History Limitations: Reports: No Limitations - History of Present Illness INITIAL COMMENTS - FREE TEXT/NARRATIVE: Patient presented to the ED because dental pain for 4 days over the left lower molar. She rate it /, took ibuprofen and tylenol without any relief. She is scheduled to see a dentist ist week of March. - Related Data Allergies Allergy/AdvReac Type Severity Reaction Status Date / Time No Known Allergies Allergy Verified 03/20/21 22:27 Home Meds: Home Meds Amoxicillin 500 mg PO TID #30 capsule 03/20/21 [Rx] Lidocaine 2% [Xylocaine 2% Viscous] 2 ml PO ASDIRECTED #30 ml 03/20/21 [Rx] Rizatriptan Benzoate [Rizatriptan] 10 mg PO ASDIRECTED PRN 03/20/21 [History] SUMAtriptan [Imitrex] 6 mg SQ ASDIRECTED PRN 03/20/21 [History] Past Medical History HEENT History: Reports: Other (See Below) Other HEENT History: poor dentition. Cardiovascular History: Reports: Other (See Below) Other Cardiovascular History: Varicose veins. Respiratory History: Reports: Other (See Below) Other Respiratory History: chronic smoker. 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 Surgery for tube removal Neurological History: Reports: Migraines Other Neuro History: Migraines for the last 21 years - Past Surgical History HEENT Surgical History: Reports: None Respiratory Surgical History: Reports: None GI Surgical History: Reports: None Female Surgical History: Reports: Tubal Ligation Other Female Surgeries/Procedures: tubes tied Neurological Surgical History: Reports: None Social & Family History - Family History Family Medical History: No Pertinent Family History - Tobacco Use Tobacco Use Status *Q: Current Every Day Tobacco User Years of Tobacco use: 15 Packs/Tins Daily: 0.5 - Caffeine Use Caffeine Use: Reports: Soda Caffeine Use Comment: herbalife tea - Living Situation & Occupation 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 GENERAL - Review of Systems Review Of Systems: See Below Constitutional: Reports: No Symptoms HEENT: Reports: Dental Pain Respiratory: Reports: No Symptoms Cardiovascular: Reports: No Symptoms Endocrine: Reports: No Symptoms GI/Abdominal: Reports: No Symptoms : Reports: No Symptoms Musculoskeletal: Reports: No Symptoms Skin: Reports: No Symptoms Neurological: Reports: No Symptoms ED EXAM, GENERAL - Physical Exam Exam: See Below Exam Limited By: No Limitations General Appearance: Alert, No Apparent Distress Ears: Normal External Exam, Normal Canal Nose: Normal Inspection, Normal Mucosa Throat/Mouth: Other (multiple dental caries, gum swelling left lower molar and wisdom tooth area) Neck: Normal Inspection, Supple, Non-Tender, Full Range of Motion Respiratory/Chest: No Respiratory Distress, Lungs Clear, Normal Breath Sounds, No Accessory Muscle Use, Chest Non-Tender Cardiovascular: Normal Peripheral Pulses, Regular Rate, Rhythm, No Edema, No JVD, No Murmur, No Rub GI/Abdominal: Normal Bowel Sounds, Soft, Non-Tender, No Organomegaly Back Exam: Normal Inspection, Full Range of Motion Extremities: Normal Inspection, Normal Range of Motion, Non-Tender Neurological: Alert, Oriented Course - Vital Signs Text/Narrative:: viscous lidocaine 2% applied by ED nurse with significant relief of pain amoxicillin 500 mg po x1 Last Recorded V/S: Last Vital Signs Temp 36.7 C 03/20/21 22:10 Pulse 90 03/20/21 22:10 Resp 16 03/20/21 22:10 BP 134/91 H 03/20/21 22:10 Pulse Ox 98 03/20/21 22:10 - Orders/Labs/Meds Meds: Medications Discontinued Medications Generic Name Dose Route Start Last Admin Trade Name Odell PRN Reason Stop Dose Admin Amoxicillin 500 mg 03/20/21 22:23 03/20/21 22:22 Amoxicillin 500 Mg Cap PO 03/20/21 22:24 500 mg NOW STA Administration Lidocaine HCl 15 ml 03/20/21 22:19 03/20/21 22:22 Lidocaine 2% Viscous Solution 15 Ml Cup PO 03/20/21 22:20 15 ml NOW STA Administration Departure - Departure Time of Disposition: 23:00 Disposition: Home, Self-Care 01 Condition: Good Clinical Impression: Pain, dental, Gingivitis - Discharge Information Prescriptions: Amoxicillin 500 mg PO TID #30 capsule Lidocaine 2% [Xylocaine 2% Viscous] 2 ml PO ASDIRECTED #30 ml Instructions: Dental Abscess, Benzocaine mouth gel, ointment, solution, or dental paste Referrals: Randall Sharif MD [Primary Care Provider] - Forms: ED Department Discharge Additional Instructions: Please read discharge instructions on dental pain and infection Take ibuprofen 800 mg with tylenol 1000 mg every 8 hours as needed for pain. Take them both at the same time for better pain relief Apply the viscous lidocaine evrey 2 hours as needed for pain Amoxicillin 500 mg 3 times daily for 10 days Follow up with your dentist as soon as you can Sepsis Event Note (ED) - Evaluation Sepsis Screening Result: No Definite Risk - Focused Exam Vital Signs: Vital Signs Temp Pulse Resp BP Pulse Ox 03/20/21 22:10 36.7 C 90 16 134/91 H 98
== END 2021-03-20 23:00 | disposition home or self-care (01) ==
LOC: FB.ED 22:10
DX: K05.10 Chronic gingivitis, plaque induced (principal); Z72.0 Tobacco use
CPT/HCPCS: 99282; A9270-GY

== ENCOUNTER 2022-01-18 20:20 | Emergency (ER) | payer OTHER, MEDICAID ==
[2022-01-18] MEDS ORDERED: Metoclopramide 10 MG/2 ML SDV IM ONE (20:58)
[2022-01-18] MEDS ORDERED: Ketorolac 30 MG/ML SDV IM ONE (20:58)
[2022-01-18] MEDS ORDERED: diphenhydrAMINE 50 MG/ML SDV IM ONE (20:58)
[2022-01-18 21:53] VITALS: BP 129/75; PULSE 96
== END 2022-01-18 21:15 | disposition home or self-care (01) ==
LOC: FB.ED 20:20
DX: G43.909 Migraine, unspecified, not intractable, without status migrainosus (principal)
CPT/HCPCS: 96372; 99283; J1200; J1885; J2765

== ENCOUNTER 2023-04-30 02:33 | Emergency (ER) | payer MEDICAID, OTHER ==
[2023-04-30] MEDS ORDERED: Ketorolac 30 MG/ML SDV IM ONE (02:47)
[2023-04-30] MEDS ORDERED: hydrOXYzine HCl 50 MG/ML SDV IM ONE (02:47)
[2023-04-30] MEDS ORDERED: Ketorolac 30 MG/ML SDV ONE (02:51)
[2023-04-30 03:15] VITALS: BP 159/88; PULSE 71
== END 2023-04-30 03:10 | disposition home or self-care (01) ==
LOC: FB.ED 02:33
DX: G43.909 Migraine, unspecified, not intractable, without status migrainosus (principal)
CPT/HCPCS: 96372; 99283; J1885; J3410

== ENCOUNTER 2023-11-11 21:25 | Emergency (ER) | payer BC, MEDICAID ==
[2023-11-11 21:41] VITALS: BP 137/88; PULSE 84
[2023-11-11] MEDS ORDERED: diphenhydrAMINE 50 MG/ML SDV IM ONE (21:42)
[2023-11-11] MEDS ORDERED: Ketorolac 30 MG/ML SDV IM ONE (21:42)
[2023-11-11] MEDS ORDERED: hydrOXYzine HCl 50 MG/ML SDV IM ONE (21:42)
== END 2023-11-11 21:54 | disposition home or self-care (01) ==
LOC: FB.ED 21:25
DX: G43.111 Migraine with aura, intractable, with status migrainosus (principal); F17.210 Nicotine dependence, cigarettes, uncomplicated
CPT/HCPCS: 96372; 99283; J1200; J1885; J3410

== ENCOUNTER 2023-11-25 21:16 | Emergency (ER) | payer MEDICAID ==
[2023-11-25] MEDS: Ketorolac 30 MG/ML SDV IM ONE (21:50)
[2023-11-25] MEDS: hydrOXYzine HCl 50 MG/ML SDV IM ONE (21:54)
[2023-11-25 22:25] VITALS: BP 125/87; PULSE 70
== END 2023-11-25 22:25 | disposition home or self-care (01) ==
LOC: FB.ED 21:16
DX: G43.111 Migraine with aura, intractable, with status migrainosus (principal); F17.210 Nicotine dependence, cigarettes, uncomplicated; Z79.899 Other long term (current) drug therapy
CPT/HCPCS: 96372; 99283; J1885; J3410

== ENCOUNTER 2024-03-19 05:47 | Emergency (ER) | payer MEDICAID ==
[2024-03-19] MEDS: diphenhydrAMINE 50 MG/ML SDV IM ONE (06:18)
[2024-03-19] MEDS: Ketorolac 30 MG/ML SDV IM ONE (06:18)
[2024-03-19] MEDS: hydrOXYzine HCl 50 MG/ML SDV IM ONE (06:19)
[2024-03-19 06:34] VITALS: BP 135/99; PULSE 95
== END 2024-03-19 06:34 | disposition home or self-care (01) ==
LOC: FB.ED 05:47
DX: G43.111 Migraine with aura, intractable, with status migrainosus (principal); F17.210 Nicotine dependence, cigarettes, uncomplicated; Z79.899 Other long term (current) drug therapy
CPT/HCPCS: 96372; 99283; J1200; J1885; J3410

== ENCOUNTER 2024-04-02 19:57 | Emergency (ER) | payer BC, MEDICAID ==
[2024-04-02] MEDS: Ondansetron 4 MG Tab.DIS PO ONE (21:27)
[2024-04-02] MEDS: hydrOXYzine HCl 50 MG/ML SDV IM ONE (21:27)
[2024-04-02] MEDS: Ketorolac 30 MG/ML SDV IM ONE (21:27)
[2024-04-02 21:40] VITALS: BP 152/100; PULSE 76
== END 2024-04-02 21:34 | disposition home or self-care (01) ==
LOC: FB.ED 19:57
DX: G43.111 Migraine with aura, intractable, with status migrainosus (principal); F17.200 Nicotine dependence, unspecified, uncomplicated; Z79.899 Other long term (current) drug therapy
CPT/HCPCS: 96372; 99283; J1885; J3410; Q0162

== ENCOUNTER 2024-06-17 20:53 | Emergency (ER) | payer MEDICAID ==
[2024-06-17] MEDS: hydrOXYzine HCl 50 MG/ML SDV IM ONE (23:30)
[2024-06-17] MEDS: Ondansetron 4 MG Tab.DIS PO ONE (23:30)
[2024-06-17] MEDS: Ketorolac 30 MG/ML SDV IM ONE (23:31)
[2024-06-18 02:48] VITALS: BP 126/70; PULSE 70
== END 2024-06-18 01:05 | disposition home or self-care (01) ==
LOC: FB.ED 20:53
DX: G43.111 Migraine with aura, intractable, with status migrainosus (principal)
CPT/HCPCS: 96372; 99283; J1885; J3410; Q0162

== ENCOUNTER 2024-07-12 20:49 | Emergency (ER) | payer MEDICAID ==
[2024-07-12] MEDS: diphenhydrAMINE 50 MG/ML SDV IM ONE (21:27)
[2024-07-12] MEDS: Ketorolac 30 MG/ML SDV IM ONE (21:28)
[2024-07-12] MEDS: hydrOXYzine HCl 50 MG/ML SDV IM ONE (21:31)
[2024-07-12 22:20] VITALS: BP 128/94; PULSE 66
== END 2024-07-12 21:47 | disposition home or self-care (01) ==
LOC: FB.ED 20:49
DX: G43.111 Migraine with aura, intractable, with status migrainosus (principal)
CPT/HCPCS: 96372; 99283; J1200; J1885; J3410

== ENCOUNTER 2024-08-06 15:08 | Emergency (ER) | payer MEDICAID ==
[2024-08-06 15:29] VITALS: PULSE 81
[2024-08-06] MEDS: Ketorolac 30 MG/ML SDV IM ONE (15:34)
[2024-08-06] MEDS: hydrOXYzine HCl 50 MG/ML SDV IM ONE (15:34)
[2024-08-06 15:53] VITALS: BP 131/94
== END 2024-08-06 15:42 | disposition home or self-care (01) ==
LOC: FB.ED 15:08
DX: G43.709 Chronic migraine without aura, not intractable, without status migrainosus (principal); F17.210 Nicotine dependence, cigarettes, uncomplicated; Z79.899 Other long term (current) drug therapy
CPT/HCPCS: 96372; 99283; J1885; J3410

== ENCOUNTER 2024-08-11 19:31 | Emergency (ER) | payer MEDICAID ==
[2024-08-11] MEDS: Ketorolac 30 MG/ML SDV IM ONE (19:59)
[2024-08-11] MEDS: Ondansetron 4 MG Tab.DIS PO ONE (19:59)
[2024-08-11] MEDS: hydrOXYzine HCl 50 MG/ML SDV IM ONE (20:00)
[2024-08-11 20:15] VITALS: BP 136/79; PULSE 79
== END 2024-08-11 20:15 | disposition home or self-care (01) ==
LOC: FB.ED 19:31
DX: G43.111 Migraine with aura, intractable, with status migrainosus (principal); R11.2 Nausea with vomiting, unspecified; F17.210 Nicotine dependence, cigarettes, uncomplicated
CPT/HCPCS: 96372; 99283; J1885; J3410; Q0162

== ENCOUNTER 2024-10-20 20:34 | Emergency (ER) | payer MEDICAID ==
[2024-10-20] MEDS: hydrOXYzine HCl 50 MG/ML SDV IM ONE (21:01)
[2024-10-20] MEDS: Ketorolac 30 MG/ML SDV IM ONE (21:01)
[2024-10-20 23:37] VITALS: BP 126/82; PULSE 66
== END 2024-10-20 21:41 | disposition home or self-care (01) ==
LOC: FB.ED 20:34
DX: G43.829 Menstrual migraine, not intractable, without status migrainosus (principal); G43.109 Migraine with aura, not intractable, without status migrainosus; F17.210 Nicotine dependence, cigarettes, uncomplicated; Z79.899 Other long term (current) drug therapy
CPT/HCPCS: 96372; 99283; J1885; J3410

== ENCOUNTER 2024-10-26 17:04 | Emergency (ER) | payer MEDICAID ==
[2024-10-26] MEDS: Ketorolac 30 MG/ML SDV IM ONE (17:25)
[2024-10-26] MEDS: hydrOXYzine HCl 50 MG/ML SDV IM ONE (17:26)
[2024-10-26] MEDS: Metoclopramide 10 MG/2 ML SDV IM ONE (17:27)
[2024-10-26 17:40] VITALS: BP 129/83; PULSE 83
== END 2024-10-26 17:36 | disposition home or self-care (01) ==
LOC: FB.ED 17:04
DX: G43.109 Migraine with aura, not intractable, without status migrainosus (principal); F17.210 Nicotine dependence, cigarettes, uncomplicated; Z79.899 Other long term (current) drug therapy
CPT/HCPCS: 96372; 99283; J1885; J2765; J3410

== ENCOUNTER 2024-11-04 06:38 | Emergency (ER) | payer SELFPAY ==
[2024-11-04 07:04] VITALS: BP 143/87; PULSE 80
[2024-11-04] MEDS: Ondansetron 4 MG Tab.DIS PO ONE (07:21)
[2024-11-04] MEDS: hydrOXYzine HCl 50 MG/ML SDV IM ONE (07:24)
[2024-11-04] MEDS: Ketorolac 30 MG/ML SDV IM ONE (07:24)
[2024-11-04] MEDS: Ondansetron 4 MG Tab.DIS ONE (07:56)
== END 2024-11-04 08:09 | disposition home or self-care (01) ==
LOC: FB.ED 06:38
DX: G43.909 Migraine, unspecified, not intractable, without status migrainosus (principal); Z79.899 Other long term (current) drug therapy
CPT/HCPCS: 96372; 99283; J1885; J3410; Q0162

== ENCOUNTER 2025-01-31 18:43 | Emergency (ER) | payer SELFPAY ==
[2025-01-31] MEDS: Ketorolac 30 MG/ML SDV IM ONE (19:11)
[2025-01-31] MEDS: hydrOXYzine HCl 50 MG/ML SDV IM ONE (19:11)
[2025-01-31 21:55] VITALS: BP 117/75; PULSE 80
== END 2025-01-31 20:08 | disposition home or self-care (01) ==
LOC: FB.ED 18:43
DX: G43.909 Migraine, unspecified, not intractable, without status migrainosus (principal); F17.210 Nicotine dependence, cigarettes, uncomplicated; Z79.899 Other long term (current) drug therapy
CPT/HCPCS: 96372; 99283; J1885; J3410

== ENCOUNTER 2025-03-23 21:53 | Emergency (ER) | payer MEDICAID ==
[2025-03-23] MEDS: Metoclopramide 10 MG/2 ML SDV IVPUSH ONE (23:00)
[2025-03-23] MEDS: Ketorolac 30 MG/ML SDV IVPUSH ONE (23:01)
[2025-03-23] MEDS: Dexamethasone 4 MG/ML SDV IVPUSH ONE (23:03)
[2025-03-23] MEDS: Sodium Chloride 0.9% 10 ML Syringe FLUSH PRN (23:05)
[2025-03-24 00:13] VITALS: BP 112/75; PULSE 82
== END 2025-03-24 00:04 | disposition home or self-care (01) ==
LOC: FB.ED 21:53
DX: G43.709 Chronic migraine without aura, not intractable, without status migrainosus (principal); Z79.899 Other long term (current) drug therapy
CPT/HCPCS: 96374; 96375; 99283; J1100; J1885; J2765

== ENCOUNTER 2025-08-10 05:22 | Emergency (ER) | payer SELFPAY ==
[2025-08-10] MEDS: hydrOXYzine HCl 50 MG/ML SDV IM ONE (05:41)
[2025-08-10] MEDS: Ketorolac 30 MG/ML SDV IM ONE (05:41)
[2025-08-10 05:52] VITALS: BP 153/94; PULSE 87
== END 2025-08-10 05:50 | disposition home or self-care (01) ==
LOC: FB.ED 05:22
DX: G43.909 Migraine, unspecified, not intractable, without status migrainosus (principal); F17.200 Nicotine dependence, unspecified, uncomplicated; Z79.899 Other long term (current) drug therapy
CPT/HCPCS: 96372; 99283; J1885; J3410

== ENCOUNTER 2025-09-23 09:19 | Emergency (ER) | payer SELFPAY ==
[2025-09-23] MEDS: Ketorolac 30 MG/ML SDV IM ONE (09:51)
[2025-09-23] MEDS: Ondansetron 4 MG Tab.DIS PO ONE (09:51)
[2025-09-23 10:28] VITALS: BP 139/103; PULSE 88
== END 2025-09-23 10:34 | disposition home or self-care (01) ==
LOC: FB.ED 09:19
DX: G43.111 Migraine with aura, intractable, with status migrainosus (principal); F17.200 Nicotine dependence, unspecified, uncomplicated
CPT/HCPCS: 96372; 99283; A9270; J1885; Q0162